=== PATIENT | male | born 1950 | race Caucasian/White ===

== ENCOUNTER → 2020-05-09 | Outpatient (CLI) | payer MEDICARE ==
[~2020-05-09] MED LIST: ALLO100 PO; ASPI81CH PO; ATOR20 PO; B-122500 MCG SL; D3-20002000 UNIT PO; METO25ER PO
== END | disposition home or self-care (01) ==
LOC: LAB SHORT 10:50 → LAB 10:50
DX: R82.90 Unspecified abnormal findings in urine (principal)
CPT/HCPCS: 87086

== ENCOUNTER → 2020-07-27 | Outpatient (CLI) | payer MEDICARE | END | disposition home or self-care (01) | LOC: LAB SHORT 11:15 → LAB 11:15 | DX: H60.392 Other infective otitis externa, left ear (principal) | CPT/HCPCS: 87070; 87106; 87205 ==

== ENCOUNTER → 2022-07-01 | Outpatient (CLI) | payer OTHER ==
[2022-07-01 14:09] LABS: BASOPHILS ABSOLUTE AUTO 0.07 K/mm3 (0.00-0.23); BASOPHILS PERCENT AUTO 1 % (0-2); EOSINOPHILS ABSOLUTE AUTO 0.17 K/mm3 (0.00-0.68); EOSINOPHILS PERCENT AUTO 2 % (0-6); Hematocrit 44.8 % (37.0-53.0); Hemoglobin 14.6 g/dL (13.5-17.5); IMMATURE GRAN ABSOLUTE AUTO 0.02 K/mm3 (0.00-0.10); IMMATURE GRAN PERCENT AUTO 0 % (0-1); LYMPHOCYTES ABSOLUTE AUTO 1.62 K/mm3 (0.84-5.20); LYMPHOCYTES PERCENT AUTO 21 % (21-46); MONOCYTES ABSOLUTE AUTO 0.73 K/mm3 (0.16-1.47); MONOCYTES PERCENT AUTO 10 % (4-13); Mean Corpuscular HGB 29.3 pg (26.0-34.0); Mean Corpuscular HGB Conc 32.6 g/dL (31.5-36.5); Mean Corpuscular Volume 90 fL (80-100); Mean Platelet Volume 10.8 fL (9.1-12.4); NEUTROPHILS ABSOLUTE AUTO 4.97 K/mm3 (1.96-9.15); NEUTROPHILS PERCENT AUTO 66 % (41-73); Platelet Count 334 K/mm3 (150-400); RDW Coefficient Variation 13.4 % (11.7-14.2); RDW Standard Deviation 44.4 fL (35.1-46.3); Red Blood Cell Count 4.98 M/mm3 (4.30-5.90); White Blood Cell Count 7.58 K/mm3 (4.00-11.30)
[2022-07-01 15:39] LABS: Uric Acid, Blood 6.3 mg/dL (3.5-7.2)
[2022-07-01 15:48] LABS: Albumin, Blood 3.6 g/dL (3.4-5.0); Albumin/Globulin Ratio 0.9 (0.8-1.8); Bilirubin, Total 1.4 mg/dL (0.1-1.0); Calcium, Blood 9.6 mg/dL (8.5-10.1); Creatinine, Blood 1.22 mg/dL (0.60-1.20); Potassium, Blood 4.7 mmol/L (3.5-5.5); Total Protein, Blood 7.6 g/dL (6.4-8.2)
== END | disposition home or self-care (01) ==
LOC: LAB 09:05 → LAB SHORT 09:05
PROVIDERS: Internal Medicine Rheumatology
DX: M10.9 Gout, unspecified (principal); M15.9 Polyosteoarthritis, unspecified
CPT/HCPCS: 80053; 84550; 85025; 85651

== ENCOUNTER 2023-03-23 06:40 | Day surgery (SDC) | payer OTHER ==
[~2023-03-23] VITALS: Ht 185.4 cm; Wt 107.6 kg
--- NOTE | 2023-03-23 07:01 | NUR ---
03/23/23 0701 JOSE DRUMMOND T:[id number] P:[id number]
[2023-03-23 08:22] VITALS: BP 157/87
== END 2023-03-23 08:41 | disposition home or self-care (01) ==
LOC: ORSCSDS 06:40
PROVIDERS: Student in an Organized Health Care Education/Training Program
PROC: 08RK3JZ Replacement of Left Lens with Synthetic Substitute, Percutaneous Approach (ICD-10-PCS; principal; 2023-03-23 08:00)
DX: H25.13 Age-related nuclear cataract, bilateral (principal); E78.5 Hyperlipidemia, unspecified; Z85.528 Personal history of other malignant neoplasm of kidney; N18.2 Chronic kidney disease, stage 2 (mild); Z68.31 Body mass index [BMI] 31.0-31.9, adult; Z87.891 Personal history of nicotine dependence; K21.9 Gastro-esophageal reflux disease without esophagitis; G47.33 Obstructive sleep apnea (adult) (pediatric); F43.10 Post-traumatic stress disorder, unspecified; Z79.899 Other long term (current) drug therapy
CPT/HCPCS: J2250; J3010; J7040; V2632

== ENCOUNTER 2023-04-13 06:15 | Day surgery (SDC) | payer OTHER ==
[~2023-04-13] VITALS: Ht 185.4 cm; Wt 105.9 kg
[~2023-04-13 06:15] MED LIST changes: -ASPI81CH PO; +Aspir 8181 MG; +Balanced Salt Epinephrine Irrigation Solution 500 mL IR SCH; +FLONASE ALLERG9.9 M2; +IBUP200 PO; +ICAPS AREDS2 T1 EACH PO; +Lidocaine HCl/Pf 1% 5 ML VIAL XX SCH; +Lopressor 25 mg25 MG PO; +Loratadine10 MG PO; +Lovastatin20 MG PO; +MELATONIN; +METO25 PO; -METO25ER PO; +Moxifloxacin HCL 0.5 MG/0.1 ML 0.4MLSYR RIGHTEYE SCH; +NS 500 ML IV ONE; +OMEP20ER PO; +PHENYLEPHRINE\\TROPICAMIDE\\TETRACAINE OPHTHALMIC DILATING SOLN RIGHTEYE PRN; +Povidone-Iodine 450 DROP/30 ML Solution ONE; +Povidone-Iodine 450 DROP/30 ML Solution RIGHTEYE SCH; +VITAMIN B-122000 MC1; +VITAMIN D PO; +ZOLP5 PO
[2023-04-13] MEDS ORDERED: NS 500 ML IV ONE (06:35)
--- NOTE | 2023-04-13 06:36 | NUR ---
04/13/23 0636 Suzette Jones CALL LIGHT WITHIN REACH. TETRACAINE IN RIGHT EYE AT 0628 AND PLEDGETT IN AT 0630
[2023-04-13] MEDS ORDERED: Lidocaine HCl/Pf 1% 5 ML VIAL ONE (06:44)
[2023-04-13] MEDS ORDERED: FentaNYL Citrate 50 MCG/ML 2 ML Injection ONE (06:55)
[2023-04-13] MEDS ORDERED: Midazolam HCl 1MG / ML 2ML Vial ONE (06:55)
[2023-04-13] MEDS ORDERED: Tetracaine HCl 0.5% Opth Soln 15 ml RIGHTEYE ONE (07:31)
[2023-04-13] MEDS ORDERED: Phenylephrine Frt 10% Opth (ORSC) ONE (07:36)
[2023-04-13 07:54] VITALS: BP 111/61
== END 2023-04-13 08:10 | disposition home or self-care (01) ==
LOC: ORSCSDS 06:15
PROVIDERS: Student in an Organized Health Care Education/Training Program
PROC: 08RJ3JZ Replacement of Right Lens with Synthetic Substitute, Percutaneous Approach (ICD-10-PCS; principal; 2023-04-13 07:30)
DX: H25.11 Age-related nuclear cataract, right eye (principal); Z96.1 Presence of intraocular lens; H35.3190 Nonexudative age-related macular degeneration, unspecified eye, stage unspecified; I12.9 Hypertensive chronic kidney disease with stage 1 through stage 4 chronic kidney disease, or unspecified chronic kidney disease; N18.2 Chronic kidney disease, stage 2 (mild); K21.9 Gastro-esophageal reflux disease without esophagitis; E78.5 Hyperlipidemia, unspecified; G47.33 Obstructive sleep apnea (adult) (pediatric); F43.10 Post-traumatic stress disorder, unspecified; Z79.82 Long term (current) use of aspirin; Z79.899 Other long term (current) drug therapy; Z87.891 Personal history of nicotine dependence
CPT/HCPCS: J2001; J2250; J3010; J7040; V2632

== ENCOUNTER → 2023-04-14 | Outpatient (CLI) | payer OTHER ==
[~2023-04-14] MED LIST changes: -Balanced Salt Epinephrine Irrigation Solution 500 mL IR SCH; -Lidocaine HCl/Pf 1% 5 ML VIAL XX SCH; -Moxifloxacin HCL 0.5 MG/0.1 ML 0.4MLSYR RIGHTEYE SCH; -NS 500 ML IV ONE; -PHENYLEPHRINE\\TROPICAMIDE\\TETRACAINE OPHTHALMIC DILATING SOLN RIGHTEYE PRN; -Povidone-Iodine 450 DROP/30 ML Solution ONE; -Povidone-Iodine 450 DROP/30 ML Solution RIGHTEYE SCH
== END ==
LOC: LAB SHORT 11:30 → LAB 11:30
DX: M10.9 Gout, unspecified (principal)
CPT/HCPCS: 84550; 85651